=== PATIENT | female | born 2000 | race Caucasian/White ===

== ENCOUNTER → 2025-02-26 15:00 | Outpatient (BNV) | payer OTHER, SELFPAY | PROVIDERS: Visit Provider Radiology Diagnostic Radiology | DX: R10.2 Pelvic and perineal pain (principal) | CPT/HCPCS: 76830; 76856 ==

== ENCOUNTER 2025-02-26 15:15 | Outpatient (REF) | payer OTHER, SELFPAY ==
--- NOTE | ~2025-02-26 | US_ITS ---
EXAMINATION: US PELVIS TRANSABDOMINAL AND TRANSVAGINAL HISTORY: PELVIC PAIN, LOW LYING STRINGS, CHECK IUD COMPARISON: There are no prior studies for comparison. TECHNIQUE: Transabdominal and endovaginal real-time 2D jackson-scale ultrasound was performed. FINDINGS: Uterus: The uterus is normal in size, measuring 8.3 x 3.4 x 4.4 cm. Myometrium has a normal echotexture. No fibroids are identified. Endometrium: The endometrial stripe measures 5 mm in thickness. An IUD is noted which is low-lying. The tip is approximately 3.8 cm from the uterine fundus. Right ovary: The right ovary measures 5.8 x 2.0 x 2.0 cm. The right ovary is normal in size and echotexture. Left ovary: The left ovary measures 3.0 x 1.9 x 1.5 cm. The left ovary is normal in size and echotexture. Pelvic fluid: none. US/US pelvic and transvaginal IMPRESSION: Low-lying IUD with the tip approximately 3.8 cm from the uterine fundus. Otherwise unremarkable pelvic ultrasound. Electronically signed by: Joss Farnsworth MD 02/26/2025 03:51 PM EDT
--- OUTSIDE RECORDS SUMMARY | 2025-02-26 15:49 | XMS_ITS | Patient Health Record ---
Author Organization [facility] Address [address] [facility] [address] [place] [address] Care Team Providers Care Art History Professor Name Role Phone aaaNone, None Primary Care Provider Unavailabl e Reason For Referral No Information Plan Of Treatment No Information Insurance Providers Payer Name Payer Address Payer Phone Subscriber Number Group Number Insured Name Patient Relationship to Insured Coverage Start Date Coverage End Date MD Garcia [address] [place] [address] [phone] [id number] Shyanne Corea Self - patient is the insured 2020
--- OUTSIDE RECORDS SUMMARY | 2025-02-26 15:49 | XMS_ITS | Referral Summary ---
Author Organization [facility] Address [address] [place] [address] Care Team Providers Care Sexual Abuse Counsellor Name Role Phone Vandana Schwartz DANG Primary Care Provider [phone] Encounters Date Type Department Care Team Description 12/23/2024 Telephone [facility] 1st Floor [address] [place] [address] Jenny Cm MD from Last 3 Months Medications amLODIPine (NORVASC) 5 mg tablet Take 2.5 mg by mouth once a day. 4 Active hydrOXYzine HCL (ATARAX) 25 mg tablet Take 25 mg by mouth 3 times a day as needed. 5 Active propranoloL (INDERAL) 10 mg tablet Take 10 mg by mouth 2 times a day. 4 Active doxycycline monohydrate (MONODOX) 100 mg capsule Take 100 mg by mouth once a day. 5 Active triamcinolone acetonide (KENALOG) 0.1% cream Apply 0.1 application. topically to the affected area 2 times a day. 4 Active ruxolitinib (OPZELURA) 1.5 % topical creamIndications :Dermatitis Apply a thin layer twice daily to affected areas of up to 20% body surface area. Do not exceed more than 60 g/week or 100 g every two weeks. 60 g 3 5 Active Social History Tobacco Use Types Packs/Day Years Used Date Smoking Tobacco: Never Assessed Comments Unknown Sex and Gender Information Value Date Recorded Sex Assigned at Female 11/18/2024 3:14 PM EST Legal Sex Female 3:06 PM EST Gender Identity Female 11/18/2024 3:14 PM EST Sexual Orientation Not on file Plan of Treatment Upcoming Encounters Date Type Department Care Team (Late st Contact Info) Description 03/02/2025 3:30 PM EDT Clinical Support [facility] 1st Floor [address] [place] [address] Héctor Delcid MD [address] [place] [address] Jenny Cm MD [address] [place] [address] 03/04/2025 10:30 AM EDT Clinical Support [facility] 4th Floor [address] [facility], [place] [id number] Plant And Equipment Worker: Moira Rodriguez 03/06/2025 10:30 AM EDT Clinical Support [facility] 1st Floor [address] [place] [address] Jenny Cm MD [address] [place] [address] [address] [place] [id number] [employer] PPO/EPO/IND Care Teams Sexual Abuse Counsellor Relationship Specialty Start Date End Date Vandana Schwartz FNP [address] [place] [id number] PCP - General 11/18/24
--- OUTSIDE RECORDS SUMMARY | 2025-02-26 15:49 | XMS_ITS | Patient Health Record ---
Author Organization [facility] Address [address] [facility] [address] [place] [address] Support Name Relationship Address Phone MARIE TERAN Guarantor Unknown Allergies No Known Allergies Reason For Referral No Information Medications Medication SIG (Take, Route, Frequency, Duration) Notes Start Date End Date Status Cefdinir 300 MG Oral for 0 ; SourceRx: Cefdinir 300 MG Oral Capsule; SourceStatus:Active *Pick strength-form from Tip or Skip for eRX* 05/03/2017 Active 11/03 1-20 MG-MCG Oral for 0 ; SourceRx: 11/03 1-20 MG-MCG Oral Tablet; SourceStatus:Active *Pick strength-form from [place] for eRX* 05/03/2017 Active amLODIPine Besylate 10 MG Oral for 0 ; SourceRx: AMLODIPINE BESYLATE, 10MG (Oral Tablet); SourceStatus:Active *Pick strength-form from Tip or Skip for eRX* 05/03/2017 Active Problems Problem Type SNOMED Code ICD Code Onset Dates Problem Status W/U Status Risk Notes Problem Chronic rhinitis (56127316) Chronic rhinitis (J31.0) Active confirmed Problem Hypertrophy of tonsils (88583483) Hypertrophy of tonsils (J35.1) Active confirmed Problem Apnea (4061927) Apnea, not elsewhere classified (R06.81) Active confirmed Problem Title:Apne a Problem Puncture wound without foreign body of left ear, sequela (S01.332S) Active confirmed Plan Of Treatment No Information Insurance Providers Payer Name Payer Address Payer Phone Subscriber Number Group Number Insured Name Patient Relationship to Insured Coverage Start Date Coverage End Date [employer] [address] [place] [address] [id number] MARIE TERAN 5 Medical (General) History Surgical History Surgery Date(Month/Year) Problem Title : None, Problem Status : A ctive,
--- OUTSIDE RECORDS SUMMARY | 2025-02-26 15:49 | XMS_ITS | Clinical Summary ---
Author Organization [facility] Address [address] [place] [address] Care Team Providers Care Advertising Dispatch Clerks Supervisor Name Role Phone Vandana Schwartz PRINCIPAL ARCHAEOLOGIST Primary Care Provider [phone]- [phone] Medications amLODIPine (NORVASC) 5 mg tablet Take [...] two weeks. 60 g 3 5 Active Encounters Date Type Department Care Team Description 12/23/2024 Telephone [facility] 1st Floor [address] [place] [address] Jenny Cm MD from Last 3 Months Social History Tobacco Use Types Packs/Day Years [...] Description 03/02/2025 3:30 PM EDT Clinical Support [facility] 1st Floor [address] [place] [address] Héctor Delcid MD [address] [place] [address] Jenny Cm MD [address] [place] [address] 03/04/2025 10:30 AM EDT Clinical Support [facility] 4th Floor [address] [facility], [place] [address] Computer Systems Software Engineer: Moira Rodriguez 03/06/2025 10:30 AM EDT Clinical Support [facility] 1st Floor [address] [place] [address] Jenny Cm MD [address] [place] [address] Health Maintenance Due Date Last Done Comments HIV Screening 1998 Hepatitis C Screening 1998 Pap Smear 1998 Varicella Vaccines (1 of 2 - 13+ 2-dose series) 2011 HPV Vaccines (1 - 3-dose series) 2013 Hepatitis B Vaccines (1 of 3 - 19+ 3-dose series) 2017 DTaP,Tdap,and Td Vaccines (1 - Tdap) 2020 COVID-19 Vaccine (4 2023-2 5 season) 2024 03/15/2021, 03/15/2021, 02/22/2021 Alcohol/Substance Use Screening 10/15/2024 Depression Screening and Follow-Up 10/15/2024 Social Drivers of Health Annual Screening 10/15/2024 Influenza Vaccine (Season Ended) 2025 RSV Vaccine (60+ years old and patients) (1 - 1-dose 75+ series) 2073 Pneumococcal Vaccine: Pediatric (0-5 Years) and At-Risk Patients (6-50 Years) Aged Out No longer eligible based on patient's age to complete this topic Insurance [employer] PPO/EPO/IND Care Teams Advertising Dispatch Clerks Supervisor Relationship Specialty Start Date End Date Vandana Schwartz FNP [address] [place] [id number] PCP - General 11/18/24
--- OUTSIDE RECORDS SUMMARY | 2025-02-26 15:49 | XMS_ITS | Data Portability ---
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 These include GERD, palpitations, weight gain, emotional labilitycatara ct, glaucoma, tendon rupture, steroid psychosis, and avascular necrosis. Risks and benefits of systemic steroids took place and patient desired to proceed to use and accepts the risks discussed. Not available 04/08/2018 14:11:01 10/22/2019 10/22/2019 might need malaria ppx for 4 weeks of travel. 6 weeks given to be taken before and after as prescribed. Advised patient which areas would need malaria ppx and sent with cdc guidelines cassie Not available 10/22/2019 09:17:49 01/16/2020 01/16/2020 REviewed the possiblity of mono. Recommended symptomatic care, but follow up with symptoms that are not improving after 10 days. sstivison Not available 01/16/2020 09:46:31 Plan of Treatment Reminders Order Date Submit Date Provider Last Modified By Organization Details Last Modified Time Details Appointments None recorded. Lab CT + NG RNA, PCR, unspecifie d specimen 2018 019 [place] [facility] ([facility], [facility], [place], [address], 9 07:36:58 RPR (rapid plasma reagin), serum 2018 019 [place] [facility] ([place]), [address], [place], [address], 9 07:37:03 HIV 1+2 AB + HIV 1 p24 Ag, qualitativ e immunoassa y, serum 2018 019 [place] [facility] ([place]), [address] [place], [address], 9 07:37:00 Referral None recorded. Procedures None recorded. Surgeries None recorded. Imaging MRI, cervical spine, w/o contrast 2020 021 chun 121 Not available 1 11:38:09 XR, cervical spine, 4 or 5 view 2020 021 chun 121 Not available 1 11:38:09 Medication Orders atovaquone 250 mg-proguan il 100 mg tablet 2019 020 [id number], [address] [place], [address], 0 08:51:23 Epiduo Forte 0.3 %-2.5 % topical gel with pump 2019 020 INTERFACE [id number], [address] [place], [address], 0 08:48:48 spironolac tone 50 mg tablet 2019 020 INTERFACE [id number], [address] [place], [address], 0 08:48:48 Medrol (Hussein) 4 mg tablets in a dose pack 2017 018 INTERFACE Not available 8 14:11:19 Patient TargetsNo targets recorded. Patient Instructions Encounter Date Encounter Id Patient Instructions Last Modified By Organization Details Last Modified Time 04/08/2018 [id number] nasal septum repair: before your surgery Not available 04/08/2018 14:11:17 sleep apnea: car e instructions Not available 04/08/2018 14:11:17 tonsillitis: car e instructions Not available 04/08/2018 14:11:17 03/14/2019 [id number] visual acuity* JANINA Not available 03/14/2019 11:28:04 Your child looks great. Please return in one year for next well visit. No vaccines were needed at this visit. Make sure to use helmets for activities, always wear seat belt/sit in right seat for your age. [place] your teeth 2 times a day and see the dentist every 6 months. Watch less than 2 hours of TV a day and try to stay healthy by eating a good variety of foods and getting exercise daily. Do not smoke, drink, or do drugs. larling Not available 03/14/2019 13:20:49 10/22/2019 [id number] >50% of time spent on discussion, education and counseling. Total time spent greater than 30 min larling Not available 10/22/2019 09:16:33 01/16/2020 [id number] Continue using ibuprofen for discomfort and rotate in Tylenol as well. Drink lots of fluids. Follow up for symptoms that don't improve after 10 days, or any difficulty breathing. sstivison Not available 01/16/2020 09:47:11 Reason for Referral None Reported. Results Created Date Observation Date Name Description Value Unit Range Abnormal Flag Note LastModifiedBy Organization Detail LastModifiedTime 03/14/2003/16/2019 CT + NG RNA, PCR, unspe cifie d speci men chlamydia trachomatis, TIFFANY Negati ve negati ve Not Available [facility] ([facility]) [address] [place], [address], 03/16/2019 07:36:58 03/14/2003/16/2019 CT + NG RNA, PCR, unspe cifie d speci men neisseria gonorrhoeae, TIFFANY Negati ve negati ve Not Available [facility] ([facility]) [address] [place], [address], 03/16/2019 07:36:58 03/14/2003/15/2019 HIV 1+2 AB + HIV 1 p24 Ag, quali tativ e immun oassa y, serum HIV screen 4TH generation wrfx Non Reacti ve non reacti ve Not Available [facility] ([facility]) [address], [place], [address], 03/16/2019 07:37:00 03/14/20 19 03/15/2019 RPR (rapi d plasm a reagi n), serum RPR Non Reacti ve non reacti ve Not Available [facility] ([facility]) [address], [place], [address], 03/16/2019 07:37:03 03/14/20 19 03/14/2019 visua l acuit y* R Eye Uncorrected 20/20 Not Available In-O ffice Order Internal Use Only DO Not Attach Compendium DO Not Attach Compendium, Do Not Delete/merge, [id number] 03/14/2019 11:06:07 03/14/20 19 03/14/2019 visua l acuit y* L Eye Uncorrected 20/20 Not Available In-O ffice Order Internal Use Only DO Not Attach Compendium DO Not Attach Compendium, Do Not Delete/merge, [id number] 03/14/2019 11:06:07 03/14/20 19 03/14/2019 visua l acuit y* Bilateral Eyes Uncorrected 20/20 Not Available In-O ffice Order Internal Use Only DO Not Attach Compendium DO Not Attach Compendium, Do Not Delete/merge, [id number] 03/14/2019 11:06:07 03/11/20 21 03/10/2021 XR, cervi jasper spine No observ ation record ed. [email or web address] Not Available 03/11 10:11:18 03/11/20 21 03/10/2021 MRI, cervi jasper spine , w/o contr ast No observ ation record ed. [email or web address] Not Available 03/11 10:22:19 03/11/20 21 03/10/2021 MRI, thora cic spine , w/o contr ast No observ ation record ed. [email or web address] Not Available 03/11 10:22:19 Result Notes None recorded. Problems Name Problem SNOMED Code Status Onset Date Resolution Date Notes Provider Name and Address Organization Details Recorded Time Hypertensive disorder 04908146 Active Giuliana Reed [facility] 8 13:31:50 Problem Notes Documentation Provider Name and Address Organization Details Recorded Time Ent [facility] Note : [facility] ? [address], [place] [address]DRIVXBVZ, MARK Radha (id #[id number], : 2000) [facility] [address] [place] [address] , Date: 04/08/2018RE: Mark Corea, : 2000, PT ID #[id number] Martinez MD, I would like to thank you for referring Mark Nahomy to our practice for consultation and evaluation of Pt present for tonsil abscess. PT notes started about 4 days ago had a sore throat , just recently about 2 days ago it was worse. [facility] her to [facility], where she was diagnosed with peritonsiallar abscess. PT was given antibiotics by IV and also steriod and was given antibiotics to take home. PT notes she feel a lot better today then she did the other day. PT notes she has trouble swallowing the yeterday. , on 04/08/2018. I have enclosed a copy of the office evaluation for your records. Once again, thank you for allowing me to participate in the care of this patient. Sincerely, Electronically Signed by: JOSE DAVID RDZ MD Assessment/PlanRisk of systemic steroids discussed. These include GERD, palpitations, weight gain, emotional labilitycataract, glaucoma, tendon rupture, steroid psychosis, and avascular necrosis. Risks and benefits of systemic steroids took place and patient desired to proceed to use and accepts the risks discussed. 1. Acute ohzazboblqzX09.90: Acute tonsillitis, unspecified TONSILLITIS: CARE INSTRUCTIONS 2. Hypertrophy of tonsils- pt to return early may to consider tonsillecotmy for uprymqxrzyeR80.1: Hypertrophy of tonsils Medrol (Hussein) 4 mg tablets in a dose pack - Take 1 dose pk(s) by oral route. ? Qty: 1 dose pk(s) ? Refills: 0 ? Pharmacy: [id number] 3. Obstructive sleep apnea pkhayhdrA37.33: Obstructive sleep apnea (adult) (pediatric) SLEEP APNEA: CARE INSTRUCTIONS 4. Deviated nasal khkkjtG62.2: Deviated nasal septum NASAL SEPTUM REPAIR: BEFORE YOUR SURGERY Return to Office None recordedHistory of Present Illness: 17 yo White female with suspected right sided [employer]. Sore throat started last week, Sunday evening worsened, difficulty swallowing yesterday. Low grade fever 100F yesterday. Pt seen at [facility] sunday negative rapid strep. seen at [facility]. no ct Scan bloodwork wbc 14, monospot negative. given iv steroid decadron and antibiotics. given clindamycin oral for home. pt is significantly resolved. had hot potato voice yesterday. no pain today. able to swallow. no breathing issues. 2 weeks ago had with severe sore throat. no frequent tonsil infections. no mono in past. idiopathic htn. Allergies: Reviewed Allergies NKDA Medications: Reviewed Medications NameDate Source amLODIPine 10 mg tdoemc66 mg.04/08/18?entered Giuliana Reed Ozapfeceqtq75/25/18?entered Giuliana Reed Lo Loestrin Fe 1 mg-10 mcg (24)/10 mcg (2) joxmmn35/09/17?filled [facility] Medrol (Hussein) 4 mg tablets in a dose packTake 1 dose pk(s) by oral route.04/08/18?prescribed Jose David Rdz MD Vital Signs: BP: 125/80 sitting L arm (87th % / 90th %)04/08/2018 01:36 pm BMI: 23.6 (70th %)04/08/2018 01:36 pm Ht: 5 ft 7.5 in (171.45 cm; 90th %)04/08/2018 01:32 pm Wt: 153 lbs (69.4 kg; 83rd %)04/08/2018 01:36 pm T: 97.7 F? ? ? (36.5 C)04/08/2018 01:41 pm Pulse: 69 bpm muitmkl5104/08/2018 01:36 pm O2Sat: 98% Room Air at Rest04/08/2018 01:36 pm Physical ExamPatient is a 17-year-old female. Detailed ENT Exam Constitutional:Normal body habitus, Normal physical developmentCommunicates easily and no hoarseness Head/Face:No scars, lesions or massesFace symmetric at rest and motion Eyes: EOMI bilaterally. NO diploplia. No nystagmus present Ears:Right external ear without any lesions, scars or massesRight ear canal clear without any edema, erythema or drainageRight Tympanic membrane clear intact and no middle ear effusion Left external ear without any lesion, scars, or massesLeft ear canal clear without any edema, erythema, or drainageLeft Tympanic membrane clear intact and no middle ear effusion Hearing equal to finger rub and Tuning forkWeber midline and Rinne AC > BC bilaterally Nose:No external lesions, scars, masses, or asymmetryNasal mucosa moist without drainage, polyps, or massesSeptum midline without lesionsTurbinate normal size without edema or erythema.Frontal and maxillary sinus nontender to palpation bilaterally. OC/OP:Lips, teeth, and gingiva unremarkableNormal occlusion.Oral cavity mucosa moist without lesionsTongue midline mobile without deviationTonsils 3-4 + Small amount of Exudate seen on right tonsil. palpation rubbery.no trismus. no peritonsillar bulge.Posterior pharyngeal wall without post nasal drainage or cobblestoning NeckGrossly symmetric ,Trachea midlineThyroid normal size, nontender, no palpable massesNo palpable Cervical Lymph nodes Procedure DocumentationNone recordedResults DocumentationN/A Ivonne Martinez MD [address], [place], [address], [facility] - [facility] 04/09/2018 21:07:06 Neurosurgery Consult Note : [facility] - [facility] ? [address], [place] [address]CAWLOEBOMARK COREA (id #[id number], : 2000) [facility] [address] [place] [address] , Omux: 03/09/2021E: Mark Corea, : 2000, PT ID #[id number] Martinez MD (Virtual Visits Available), I would like to thank you for referring Mark Corea to our practice for consultation and evaluation ofNone recorded, on 02/25/2021. I have enclosed a copy of the office evaluation for your records. Once again, thank you for allowing me to participate in the care of this patient. Sincerely, Electronically Signed by: TERI VELASQUEZ MD Assessment/Plan1. Cervical radiculopathy- With a diagnosis of cervical radiculopathy and with physical therapy there is been no resolution I have recommended she get an MRI of the cervical spine as well as flexion-extension films. I am concerned that she has had an injury.With the failure of physical therapy and nonsteroidal anti-inflammatory medication imaging will be needed to make any further recommendations.M54.12: Radiculopathy, cervical region MRI, CERVICAL SPINE, W/O CONTRAST XR, CERVICAL SPINE, 4 OR 5 VIEW Views (X-RAY, CERVICAL SPINE): Flexion & Extension Return to Office None recordedHistory of Present Illness: Ms. Corea is here for a virtual visit. She is a very active young woman and at college over the past few months she has been dancing very vigorously. She is noticed increasing amount of pain in her neck and recently she had an event where she felt a crushing sensation in the back of her neck while dancing and carrying a large piece of wood on the top of her head. Since then she is been complaining of neck pain that radiates to her arms. She has been to the emergency room as well as to a local physician's judicial assistant and they have diagnosed her with cervical radiculopathy. She has started physical therapy and has had no significant improvement in her symptoms. She made an appointment to see me virtually from her residence in [place]. She denies any bladder or bowel control issues but she does admit to significant arm pain that she describes as a burning sensation that wraps around her chest at times also extends into her arms. She denies any weakness but she has difficulty sleeping at night. She has been using ibuprofen without significant improvement. She has been given cervical traction and a home traction device. None of this has alleviated the pain and she thinks has exacerbated it. Allergies: Reviewed Allergies NKDA Medications: Reviewed Medications NameDate Source amLODIPine 10 mg iljmzr20 mg.04/08/18?entered Giuliana Reed atovaquone 250 mg-proguaniL 100 mg tablettake 1 tablet daily starting 2 days before entering mosquito areas until 7 days after10/22/19?prescribed Mallorie Retana MD clindamycin HCL 150 mg hwsunwl72/24/18?filled [facility] Epiduo Forte 0.3 %-2.5 % topical gel with pumpAPPLY A THIN LAYER TO THE AFFECTED AREA(S) OF THE FACE AND/OR UPPER TRUNK AFTER WASHING BY TOPICAL ROUTE ONCE DAILY12/29/19?filled [facility] Flucelvax Quad [id number] (PF) 60 mcg (15 mcg x 4)/0.5 mL IM syringeTO BE ADMINISTERED BY PHARMACIST FOR DXNFHPWJGEOT96/29/19?filled surescripts Junel FE 11/03 (28) 1 mg-20 mcg (21)/75 mg (7) /11/18?filled [facility] Lidocaine Viscous 2 % mucosal cljshvua80/24/18?filled [facility] Lo Loestrin Fe 1 mg-10 mcg (24)/10 mcg (2) isjrct64/09/17?filled [facility] methylPREDNISolone 4 mg tablets in a dose packTake 1 dose pk(s) by oral route.04/08/18?filled [facility] predniSONE 10 mg tabletTAKE 6 TABLETS BY MOUTH EVERY DAY FOR 3 DAYS , 4 TABS X4 DAYS THEN 2 TABS X4 DAY07/17/19?filled surescripts spironolactone 50 mg tabletTAKE 1 TABLET BY MOUTH EVERY DAY01/03/20?filled [facility] Vital Signs:None recordedPhysical ExamPatient is a 20-year-old female. This was a virtual synchronous visit. Ms. Corea is awake, alert and oriented. She is well-developed, well-nourished and in no acute distress. She seems nondiaphoretic with no shortness of breath. She is able to stand on her own without difficulty. She has full strength in bilateral upper extremities as best as I can determine using a virtual exam. She has limited range of motion of her cervical spine. She does have a positive Spurling sign to the left. She has otherwise normal range of motion of the lumbar and thoracic spine. She has known scoliosis of the thoracic area.Procedure DocumentationNone recordedResults DocumentationN/A Ivonne Martinez MD [address], [place], [address], [facility] [employer] [facility] 03/09/2021 11:32:04 Procedures Surgical History None recorded. Imaging Results Imaging Date Name Status LastModified by Organiz ation Details LastModified Time 03/10/2021 XR, cervical spine completed [email or web address] Information not available 03/11/2021 10:11:18 03/10/2021 MRI, cervical spine, w/o contrast completed [email or web address] Information not available 03/11/2021 10:22:19 03/10/2021 MRI, thoracic spine, w/o contrast completed [email or web address] Information not available 03/11/2021 10:22:19 Procedure Notes None recorded. Medical Equipment None Reported. Allergies No known drug allergies Medications Name Sig Start Date Stop Date Status Note LastModified by Organization Details LastModified Time prednisone 10 mg tablet TAKE 6 TABLETS BY MOUTH EVERY DAY FOR 3 DAYS , 4 TABS X4 DAYS THEN 2 TABS X4 DAY active Not Available Not Available No t Available Lidocaine Viscous 2 % mucosal solution active Not Available Not Available Not Available hydrocodone 5 mg-acetamin ophen 325 mg tablet 03/14 completed Not Available Not Available Not Available atovaquone 250 mg-proguani l 100 mg tablet take 1 tablet daily starting 2 days before entering mosquito areas until 7 days after 2019 active Not Available Not Available Not Avai lable clindamycin HCl 150 mg capsule active Not Available Not Available Not Available oxycodone-a cetaminophe n 5 mg-325 mg tablet 03/14 completed Not Available Not Available Not Available amlodipine 10 mg tablet 10 mg by oral route. active Not Available Not Available No t Available gabapentin 300 mg capsule TAKE 1 CAPSULE BY MOUTH TWICE A DAY FOR 7 DAYS THEN TAKE 1 CAPSULE 3 TIMES DAILY 2020 active Not Available Not Available Not Avai lable methylpredn isolone 4 mg tablets in a dose pack Take 1 dose pk by oral route. active Not Available Not Available No t Available cefdinir 300 mg capsule 03/14 completed Not Available Not Available Not Available spironolact one 50 mg tablet TAKE 1 TABLET BY MOUTH EVERY DAY active Not Available Not Available No t Available Junel FE 11/03 (28) 1 mg-20 mcg (21)/75 mg (7) tablet active Not Available Not Available N ot Available Clindamycin 03/14 completed Not Available Not Available Not Available Lo Loestrin Fe 1 mg-10 mcg (24)/10 mcg (2) tablet active Not Available Not Available Not Available Epiduo Forte 0.3 %-2.5 % topical gel with pump APPLY A THIN LAYER TO THE AFFECTED AREA(S) OF THE FACE AND/OR UPPER TRUNK AFTER WASHING BY TOPICAL ROUTE ONCE DAILY active Not Available Not Available No t Available Kyleena 17.5 mcg/24 hr (up to 5 years) 19.5 mg intrauterin e device 04/08 completed Not Available Not Available Not Available Flucelvax Quad 4348-2329 (PF) 60 mcg (15 mcg x 4)/0.5 mL IM syringe TO BE ADMINISTE RED BY PHARMACIS T FOR IMMUNIZAT ION active Not Available Not Available No t Available Vitals Date Recorded Body height Provider Name an d Address Organization Details Last Updated DateTime 04/08/2018 171.45 cm Anabella Bloom [facility] 04/08/2018 13:32:35 Date Recorded Body mass index (BMI) Body weight Body temperature Heart rate Oxygen saturation Oxygen saturation in Arterial blood by Pulse oximetry Systolic blood pressure Diastolic blood pressure Provider Name and Address Organization Details Last Updated DateTime 8 23.6 kg/m2 26091.6 3 g 97.7 [degF] 69 /min 98 % 98 % 125 mm[Hg] 80 mm[Hg] Giuliana Derek [facility] 8 13:36:30 Date Recorded Body height Heart rate Respiratory rate Body mass index (BMI) Percentile per age and sex Body mass index (BMI) Body weight Systolic blood pressure Diastolic blood pressure Provider Name and Address Organization Details Last Updated DateTime 9 173.99 cm 80 /min 20 /min 69 % 23.7 kg/m2 62562.5 9 g 126 mm[Hg] 86 mm[Hg] Wendy Bhtat [facility] 9 10:39:25 Date Recorded Body height Body temperature Body mass index (BMI) Body mass index (BMI) Percentile per age and sex Body weight Provider Name and Address Organization Details Last Updated DateTime 10/22/2019 173.99 cm 97.8 [degF] 23.5 kg/m2 67 % 21311.5 7 g Adolfo Albright [facility] 0 08:24:20 Social History Question Answer Notes LastModified by Organizat ion Details LastModified Time Tobacco Smoking Status Never Smoker Giuliana Reed [facility] 04/08/2018 13:36:09 What Is Your Home Situation? Both Parents Information not available 02/09/2017 How Often Do You Have A DRINK Containing ALCOHOL? Monthly Or Less Information not available 04/08/2018 What Was The Date Of Your Most Recent Tobacco Screening? 04/08/2018 Information not available 05/09/2019 Do You Have Any Siblings? Sister Information not available 02/09/2017 Are You Passively Exposed To Smoke? No Information not available 02/09/2017 Sex: Unknown Functional Status None recorded. Mental Status None recorded. Family History Relationship Description Onset Age of this Age Resolved Age Notes LastModified by Organization Details LastModified Time Father No current problems or disability [email or web address] Not available 04/08 13:32:45 Mother No current problems or disability [email or web address] Not available 04/08 13:32:45 Medical History No medical history recorded. Gynecological History Statement/Question Response How heavy is the bleeding? very heavy (9 pads/day) Date of LMP 12/08/2014 How many days between your menstrual cyc le 28-35 days Sexually Active? Y Normal Menses Y Menses Monthly Y Duration of Flow (days) 5 Age at Menarche 11 LMP Approximate Obstetrics History GPAL:G 0 P 0 0 0 0 Immunizations Vaccine Type Date Status Note Provider Nam e and Address Organization Details Recorded Time meningococcal B, recombinant 6 completed Not Available [facility] 11/02/2019 06:21:50 Tdap 0 completed Not Available [facility] 11/02/2019 03:04:34 meningococcal B, recombinant 6 completed Not Available [facility] 11/08/2019 04:39:52 meningococcal B, recombinant 6 completed Not Available [facility] 11/01/2019 02:50:13 pneumococcal conjugate PCV 7 0 completed Giuliana Miles null, [facility] 04/08/2018 13:32:05 MMR 3 completed Giuliana Miles null, [facility] 04/08/2018 13:32:06 DTaP 9 completed Giuliana Miles null, [facility] 04/08/2018 13:32:06 meningococcal MCV4P 0 completed Giuliana Miles null, [facility] 04/08/2018 13:32:06 IPV 9 completed Giuliana Miles null, [facility] 04/08/2018 13:32:05 Hep B, adolescent or pediatric 9 completed Giuliana Miles null, [facility] 04/08/2018 13:32:05 varicella 0 completed Giuliana Miles null, [facility] 04/08/2018 13:32:05 Hep B, adolescent or pediatric 9 completed Giuliana Miles null, [facility] 04/08/2018 13:32:06 IPV 0 completed Giuliana Miles null, [facility] 04/08/2018 13:32:05 Hep B, adolescent or pediatric 9 completed Giuliana Miles null, [facility] 04/08/2018 13:32:06 meningococcal MCV4P 4 completed Giuliana Miles null, [facility] 04/08/2018 13:32:06 varicella 8 completed Giuliana Miles null, [facility] 04/08/2018 13:32:06 IPV 9 completed Giuliana Miles null, [facility] 04/08/2018 13:32:05 Hib, unspecified formulation 9 completed Giuliana Miles null, [facility] 04/08/2018 13:32:05 HPV, quadrivalent 2 completed Giuliana Miles null, [facility] 04/08/2018 13:32:06 TST-PPD intradermal 4 completed Giuliana Miles null, [facility] 04/08/2018 13:32:06 DTaP 9 completed Giuliana Miles null, [facility] 04/08/2018 13:32:05 HPV, quadrivalent 1 completed Giuliana Miles null, [facility] 04/08/2018 13:32:05 HPV, quadrivalent 1 completed Giuliana Miles null, [facility] 04/08/2018 13:32:06 Hep A, ped/adol, 2 dose 7 completed Giuliana Miles null, [facility] 04/08/2018 13:32:06 DTaP 3 completed Giuliana Miles null, [facility] 04/08/2018 13:32:06 Hib, unspecified formulation 9 completed Giuliana Miles null, [facility] 04/08/2018 13:32:05 Hib, unspecified formulation 9 completed Giuliana Miles null, [facility] 04/08/2018 13:32:06 Hib, unspecified formulation 0 completed Giuliana Miles null, [facility] 04/08/2018 13:32:05 MMR 0 completed Giuliana Miles null, [facility] 04/08/2018 13:32:05 DTaP 0 completed Giuliana Miles null, [facility] 04/08/2018 13:32:05 Hep A, ped/adol, 2 dose 8 completed Giuliana Miles null, [facility] 04/08/2018 13:32:06 Tdap 0 completed Giuliana Miles null, [facility] 04/08/2018 13:32:06 IPV 3 completed Giuliana Miles null, [facility] 04/08/2018 13:32:06 pneumococcal conjugate PCV 7 0 [facility] 13:32:06 DTaP 9 [facility]2018 13:32:06 Past Encounters Encounter ID Performer Location Encounter Start Date Encounter Closed Date Diagnosis/Indication Diagnosis SNOMED-CT Code Diagnosis ICD10 Code Diagnosis Note [id number] Ivonne Martinez MD PMG_CMG_C katalina Saba Office* [address] [facility] [address] [place] [id number] 12/22/2014 14:38:43 12/23/2014 08:29:28 Transient hypertension 51374298 Uses contraception [id number] Razia Cast MD PMG_CMG_C katalina Saba Office* [address] [facility] [address] [place] [id number] 02/01/2015 13:56:51 02/01/2015 15:34:09 Hypertensive disorder 29610649 Well child 536240022 [id number] Ivonne Martinez MD PMG_CMG_C katalina Saba Office* [address] [facility] [address] [place] [id number] 12/09/2015 14:29:27 12/10/2015 16:35:05 Well child 142084654 Z00.129 Hypertensive disorder 38 161467 I10 [id number] Farhan stokes MD PMG_CMG_C katalina Mesfin Office* [address] [facility] [address] [place] [address] 02/24/2016 15:11:36 02/24/2016 15:31:00 Well child 197335131 Z00.129 [id number] Farhan stokes MD PMG_CMG_C hevy Mesfin Office* [address] [facility] [address] [place] [address] 06/27/2016 15:18:05 06/27/2016 15:34:16 Active or passive immunization 308425966 Z23 [id number] Ivonne Martinez MD PMG_CMG_C katalina Saba Office* [address] [facility] [address] [place] [id number] 02/09/2017 13:58:15 02/10/2017 12:10:28 Well child 972535455 Z00.129 Hypertensive disorder 38 960503 I10 [id number] Farhan stokes MD PMG_CMG_C katalina Saba Office* [address] [facility] [address] [place] [id number] 03/29/2017 14:41:47 03/29/2017 14:50:54 Tuberculosis screening 419848571 Z11.1 [id number] Farhan stokes MD PMG_CMG_C katalina Saba Office* [address] [facility] [address] [place] [address] 05/03/2017 07:17:10 05/04/2017 08:42:35 Complication of ear piercing 546829033 H95.89 [id number] Jose David Rdz MD PMG_HBD_S [facility] Office* [address] [facility] [place] [id number] 04/08/2018 13:17:07 04/08/2018 14:14:26 Acute tonsillitis 02965756 J03.90 Hypertroph y of tonsils 38846916 J35.1 pt to return early may to consider tonsilleco tmy for enlargmeen t Obstructiv e sleep apnea syndrome 60188815 G47.33 Deviated nasal septum 12 4006315 J34.2 [id number] Mallorie Retana MD PMG_CMG_C katalina Saba Office* [address] [facility] [address] [place] [address] 03/14/2019 10:31:34 03/16/2019 15:05:22 Hypertensive disorder 24900189 I10 history of. Has not taken medication x 1 year. High normal today. Discussed importance of monitoring it at home and followup with cardio or second opinion. Patient feels it is related to her mental health and no one will listen . Normal weight 10238661 Z 68.52 Exercises education, guidance, and counseling 777415775 Z71.82 Diet education 01839616 Z71.3 concern for eating do/body dismorphia . Advise psychology followup for mood and eating. Scoliosis deformity of spine 852189656 M41.9 Venereal d isease screening 090895671 Z11.3 Adult heal th examination 369965405 Z00.01 Mood disorder 61948439 F 39 PHQ9=12. No SI/HI. Patient working on mental health, but not seeking profession al help. Suggest seeking psych. [id number] Mallorie Retana MD PMG_CMG_C katalina Saba Office* [address] [facility] [address] [place] [address] 10/22/2019 08:21:16 10/22/2019 15:54:28 Foreign travel education 628345373 Z41.8 Travel destinatio n discussed. Cdc.gov website shown to patient/se nt with her a printout. Recommende d vaccines discussed and administer ed as below. Education on proper water exposures, mosquito repellants , and other safety practices Acne 18269802 L70.9 [id number] CASI Ponce G_CMG_C katalina Saba Office* [address] [facility] [address] [place] [address] 01/16/2020 09:27:05 01/17/2020 01:13:08 Acute pharyngitis 929529024 J02.9 [id number] Teri Velasquez MD PMG_WBSI_ [place] Office* [address] [facility] [place] [id number] 02/28/2021 08:46:14 02/28/2021 15:47:08 Cervical radiculopathy 36056072 M54.12 With a diagnosis of cervical radiculopa thy and with physical therapy there is been no resolution I have recommende d she get an MRI of the cervical spine as well as flexion-ex tension films. I am concerned that she has had an injury.Wit h the failure of physical therapy and nonsteroid al anti-infla mmatory medication imaging will be needed to make any further recommenda tions. Health Concerns Section Related Observation LastModified by Organization Detai ls LastModified Time None Recorded Concern Status LastModified by Organization Details LastModified Time None Recorded Advance Directives Directive None Recorded Payers Insurance Date Sequence Insurance Name Policy Number Policy Suarez Covered Member ID Suarez Member ID Guarantor Name 05/05/2024 1 [employer] - CHOICE (POS II) [id number] Odin Nicole [id number] Mark Corea Notes Date Note Type Note Provider Name and Address Organization Details Recorded Time 04/08/2018 text/html 17 yo White fema le with suspected right sided [employer]. Sore throat started last week, Sunday evening worsened, difficulty swallowing yesterday. Low grade fever 100F yesterday. Pt seen at [facility] sunday negative rapid strep. seen at [facility]. no ct Scan bloodwork wbc 14, monospot negative. given iv steroid decadron and antibiotics. given clindamycin oral for home. pt is significantly resolved. had hot potato voice yesterday. no pain today. able to swallow. no breathing issues. 2 weeks ago had with severe sore throat. no frequent tonsil infections. no mono in past. idiopathic htn. MD [address], [place], [address], [facility] [employer] [facility] 04/08/2018 14:12:28 10/22/2019 text/html Moving to study abroad from Nov to May in [facility]. WIll have 1 month to travel throughout [place] when she feels she would like to go to [place] and [place]. Overall well. Needs acne refills for study abroad. Would like to get them here rather than followup with [facility]. MD [address], [place], [address], [facility] [employer] [facility] 10/22/2019 09:17:54 01/16/2020 text/html Met with Mark ruano sore throat - started 2 days ago - swollen cervical lymphnodes - intermittent slight headache - no fever, no NVD - no body aches - has been staying at home for the past 3 weeks - no one else in the house is feeling unwell CASI Ponce [address], [place], [address], [facility] [employer] [facility] 01/16/2020 09:47:28 02/25/2021 text/html Ms. Corea is here for a virtual visit. She is a very active young woman and at college over the past few months she has been dancing very vigorously. She is noticed increasing amount of pain in her neck and recently she had an event where she felt a crushing sensation in the back of her neck while dancing and carrying a large piece of wood on the top of her head. Since then she is been complaining of neck pain that radiates to her arms. She has been to the emergency room as well as to a local physician's judicial assistant and they have diagnosed her with cervical radiculopathy. She has started physical therapy and has had no significant improvement in her symptoms. She made an appointment to see me virtually from her residence in [place]. She denies any bladder or bowel control issues but she does admit to significant arm pain that she describes as a burning sensation that wraps around her chest at times also extends into her arms. She denies any weakness but she has difficulty sleeping at night. She has been using ibuprofen without significant improvement. She has been given cervical traction and a home traction device. None of this has alleviated the pain and she thinks has exacerbated it. Teri Velasquez MD [address], [place], [address], [facility] 02/28/2021 09:37:27 OBGyn Episode No OBEpisode recorded.
--- OUTSIDE RECORDS SUMMARY | 2025-02-26 15:50 | XMS_ITS | Data Portability ---
Author Organization MD [employer] Address [address] [facility] [place] [address] Assessment No assessment recorded. Plan of Treatment Reminders Order Date Submit Date Provider Last Modified By Organization Details Last Modified Time Details Appointments None recorded . Lab CBC [employer] [facility], [address] [place] [address], [id number], 7 15:12:20 TSH, serum or plasma [employer] [facility], [address] [place] [address], [id number], 7 15:12:20 prolacti n, serum [employer] [facility], [address] [place] [address], [id number], 7 15:12:20 beta-HCG , qualitat gordy, serum or plasma [employer] [facility], [address] [place] [address], [id number], 7 15:12:20 Referral None recorded . Procedures None recorded . Surgeries None recorded . Imaging None recorded . Medication Orders .5 (28) 1.5 mg-30 mcg (21)/75 mg (7) tablet 017 INTERFACE [id number], [address] [facility], [place], [address], 7 21:36:08 Patient TargetsNo targets recorded. Patient Instructions Encounter Date Encounter Id Patient Instructions Last Modified By Organization Details Last Modified Time 10/12/2016 [id number] abnormal uterine bleeding: care [email or web address] Not available 10/12/2016 16:02:20 - sonogram to evaluate placement of IUD recommended. - if IUD improperly placed, recommend IUD exchange. - patient currently being treated for hypertension of unknown etiology; use of hormones in this setting reviewed. Current BP is normal. Could consider estrogen patch to control irregular BP. - options for CM reviewed in setting of elevated BP [email or web address] Not available 10/12/2016 16:06:50 Reason for Referral None Reported. Results Created Date Observation Date Name Description Value Unit Range Abnormal Flag Note LastModifiedBy Organization Detail LastModifiedTime 10/17/19 17 10/17/2016 US, pelvi s No observ ation record ed. [email or web address] Not Available 11/01 14:05:33 01/16/20 19 imagi ng/di agnos tic resul t No observ ation record ed. [email or web address] Not Available 12/2018 11:10:01 Result Notes None recorded. Problems Name Problem SNOMED Code Status Onset Date Resolution Date Notes Provider Name and Address Organization Details Recorded Time Hypertensi ve disorder 55715892 Active etiology unknown Dimple Arredondo MD [address] [place] [address],[address], , MD [employer] 6 15:57:35 Urinary tract infectious disease 57759356 Active as MD Lisa [facility] [employer] 6 11:33:47 Irregular periods 63040795 Active Dimple Arredondo MD [address] [place] [address],[address] [facility], [place], [place], , MD [employer] 7 21:29:32 Problem Notes None recorded. Procedures Surgical History Date Name Laterality Status Provider Name and Address Organization Details Recorded Time Catheterize for urine spec completed [employer] 10/12/2016 12:43:49 Imaging Results Imaging Date Name Status LastModified by Organiz ation Details LastModified Time 10/17/2016 US, pelvis completed [email or web address] Information no t available 11/01/2016 14:05:33 01/15/2019 imaging/diag nostic result completed [email or web address] Information not available 01/15/2019 11:10:01 Procedure Notes None recorded. Medical Equipment None Reported. Allergies No known drug allergies Medications Name Sig Start Date Stop Date Status Note LastModified by Organization Details LastModified Time hydrocodone 5 mg-acetaminop hen 325 mg tablet 09/04 completed Not Available Not Available Not Available oxycodone-brett taminophen 5 mg-325 mg tablet 09/04 completed Not Available Not Available Not Available amlodipine 10 mg tablet Take 1 tablet every day by oral route. active Not Available Not Available No t Available cefdinir 300 mg capsule 09/04 completed Not Available Not Available Not Available 11/03 (28) 1 mg-20 mcg (21)/75 mg (7) tablet 1 po qD active Not Available Not Availabl e Not Available .03/13 (28) 1.5 mg-30 mcg (21)/75 mg (7) tablet Take 1 tablet every day by oral route. 2016 active Not Available Not Available Not Avai lable Lo Loestrin Fe 1 mg-10 mcg (24)/10 mcg (2) tablet Take 1 tablet every day by oral route. 09/04 completed Not Available Not Available Not Available Yanique active Jul 2015 Not Available Not Available Not Available Vitals Date Recorded Body weight Provider Name an d Address Organization Details Last Updated DateTime 10/12/2016 18537.94 g Nae [employer], [place] 1 12/13/2015 11:41:09 Date Recorded Body weight Body mass index (BMI) Body height Systolic blood pressure Diastolic blood pressure Provider Name and Address Organization Details Last Updated DateTime 09/04/2017 15244.22 g 23.4 kg/m2 172.72 cm 134 mm[Hg] 84 mm[Hg] [employer] [place] 7 13:59:47 Social History Question Answer Notes LastModified by Organizat ion Details LastModified Time Tobacco Smoking Status Never Smoker Dimple Arredondo MD [address] [facility],[address], [place], [address], MD [employer], [facility] 10/16/2016 21:37:26 Marital Status Single Informatio n not available 10/12/2016 Sex: Unknown Functional Status Question Answer Note LastModified by Organization D etails LastModified Time What is your occupation? Student Information not available 10/12/2016 Mental Status None recorded. Family History Relationship Description Onset Age of this Age Resolved Age Notes LastModified by Organization Details LastModified Time Father Blood coagulation disorder [email or web address] Not available 2015 11:46:58 Medical History Condition Response Other N Blood Transfusion N Breast Cancer N Depression N Lung Disease N Defects or Inherited Disease N Breast Problem N Anesthesia Complications N Anxiety Disorder N Arthritis N Infertility N Polyps N Acid Reflux (GERD) N Abnormal Pap Smear N Cancer N Varicosities N Stroke N Endometriosis N High Cholesterol N Fibromyalgia N Headaches N Kidney Disease N Heart Problems N HPV N Thyroid Problems N Kidney or Bladder Problems N GI Problems N Acne N Eating Disorder N Anemia N Psychiatric Illness N Ovarian Cancer N Diabetes N Sexually Transmitted Infections N Fibroids N Eczema N Abuse/Domestic Violence N Asthma N Hepatitis N Heart Disease N Pre-Eclampsia N Hypertension Y Osteoporosis N Thrombophilias N Gynecological History Statement/Question Response HPV Vaccine Y Current Control Method IUD Date of LMP 08/06/2017 Sexually Active? Y Obstetrics History GPAL:G 0 P 0 0 0 0 Past Encounters Encounter ID Performer Location Encounter Start Date Encounter Closed Date Diagnosis/Indication Diagnosis SNOMED-CT Code Diagnosis ICD10 Code Diagnosis Note [id number] Dimple Arredondo MD Main [facility] [address] [facility] [address] [place] [address] 10/12/2016 11:29:45 10/12/2016 16:07:52 Irregular periods 49921608 N92.6 Disorder o f menstruation 275946629 N92.6 [id number] Dimple Arredondo MD Main Office [address] [facility] [address] [employer] [place] 6 09/04/2017 13:38:19 09/04/2017 21:38:18 Irregular periods 57117146 N92.6 Health Concerns Section Related Observation LastModified by Organization Detai ls LastModified Time None Recorded Concern Status LastModified by Organization Details LastModified Time None Recorded Advance Directives Directive None Recorded Payers Encounter Date Sequence Insurance Name Policy Number Policy Suarez Covered Member ID Suarez Member ID Guarantor Name 10/12/2016 1 [employer] - CHOICE (POS II) [id number] Odin Nicole [id number] Nahomy 09/04/2017 1 [employer] - CHOICE (POS II) [id number] Odin Nicole [id number] Nahomy Notes Date Note Type Note Provider Name and Address Organization Details Recorded Time 10/12/2016 text/html The patient presents for evaluation of abnormal vaginal bleeding. She received a Yanique IUD in 07/30 & since then has noted irregular cycles. She notes that she is currently getting menstrual bleeding every 14 days. . She {{does not* does}} have a history of irregular bleeding. She {{is is not*}} known to have fibroids. She {{denies* admits to}} possibility of . She {{denies* note}} recent changes in weight, exercise, diet, stress, sleep or travel. The patient notes cramping but not of significant intensity. She denies pain with urination or intercourse. She has had new sexual partners. Dimple Arredondo MD [address] [place] [address],[place] [address], [place], [place], , MD [employer] [employer] 10/12/2016 16:07:24 09/04/2017 text/html 16 yo with h/o irregular cycles following insertion of yanique presents for discussion of continued irregular bleeding. the patient has had a normal ultrasound & normal hormonal investigation. She was then started on loestrin 11/03 & was noting that her cycle was improved (in terms of amount of flow, though it was still rather long) over the past several months until this month when her cycle lasted 3 weeks & was heavy again. She reports no medical changes. She reports taking her OCP on a regular basis. Dimple Arredondo MD [address] [place] [address],[address], [place], [place], , MD [employer] 09/04/2017 21:37:01 OBGyn Episode No OBEpisode recorded.
== END 2025-02-26 15:16 | disposition home or self-care (01) ==
LOC: HO.UMASIMG 15:15
PROVIDERS: Visit Provider Family Medicine
DX: Z30.431 Encounter for routine checking of intrauterine contraceptive device (principal)
CPT/HCPCS: 76830; 76856

== ENCOUNTER 2025-05-27 08:49 | Outpatient (REF) | payer OTHER, SELFPAY ==
--- OUTSIDE RECORDS SUMMARY | 2025-05-27 09:07 | XMS_ITS | Referral Summary ---
Author Organization [facility] Address [address] [place] [address] Care Team Providers Care Mattress And Foundation Sewer Name Role Phone Vandana Schwartz [facility] Primary Care Provider [phone] Medications amLODIPine (NORVASC) 5 mg tablet Take [...] Orientation Not on file Plan of Treatment Not on file Insurance [employer] PPO/EPO/IND Care Teams Mattress And Foundation Sewer Relationship Specialty Start Date End Date Vandana Schwartz FNP [address] [place] [address] PCP - General 11/18/24
--- OUTSIDE RECORDS SUMMARY | 2025-05-27 09:07 | XMS_ITS | Encounter Summary ---
Author Organization [facility] Address [address] [facility] [address] [place] [address] Phone Care Team Providers Care Media Executive Name Role Phone Pcp, Unknown Primary Care Provider Unavailabl e Encounter Details Date Type Department Care Team ([facility] st Contact Info) Description 02/06/2024 Transcribe Orders Virtual Department [address] [place] [address] Vandana Schwartz, KEKE [address] [place] [phone] [email or web address] Scoliosis, unspecified scoliosis type, unspecified spinal region (Primary Dx) Social History Tobacco Use Types Packs/Day Years Used Date Smoking Tobacco: Some Days Smokeless Tobacco: Never Alcohol Use Standard Drinks/Week Comments Yes 0 (1 standard drink = 0.6 oz pur e alcohol) occasionally Education Answer Date Recorded Are you interested in more education? Not on sobia e 02/09/2023 Are you concerned about learning? Not on file 02/09/2023 No 02/09/2023 No 02/09/2023 Digital Access Answer Date Recorded No 03/10/2023 No 03/10/2023 No 03/10/2023 Reliable internet access at home? Not on file 03/10/2023 Device with a working camera? Not on file Comments No Sex and Gender Information Value Date Recorded Sex Assigned at Female 01/22/2021 8:58 PM EDT Legal Sex Female 8:33 PM EDT Gender Identity Non-binary 01/22/2021 8:58 PM EDT Sexual Orientation Queer 09/24/2021 2: 51 AM EST documented as of this encounter Plan of Treatment Not on file documented as of this encounter Visit Diagnoses Diagnosis Scoliosis, unspecified scoliosis type, unspecified spinal region- Primary documented in this encounter Care Teams Media Executive Relationship Specialty Start Date End Date Pcp, Unknown PCP - General 09/24/21 documented as of this encounter Additional Source Comments The information contained in this document represents components of the legal health record. It is not the complete legal health record.[facility]
--- OUTSIDE RECORDS SUMMARY | 2025-05-27 09:08 | XMS_ITS | Patient Health Record ---
Author Organization [facility] Address [address] [facility] [address] [place] [address] Care Team Providers Care Group Contract Analyst Name Role Phone aaaNone, None Primary Care Provider Unavailabl e Reason For Referral No Information Plan Of Treatment No Information Insurance Providers Payer Name Payer Address Payer Phone Subscriber Number Group Number Insured Name Patient Relationship to Insured Coverage Start Date Coverage End Date MD Garcia [address] [place] [address] [id number] Shyanne Corea Self - patient is the insured 2020
--- OUTSIDE RECORDS SUMMARY | 2025-05-27 09:08 | XMS_ITS | Patient Health Record ---
Author Organization [facility] [place] [facility] Address [address] [place] [address] Support Name Relationship Address Phone MARIE TERAN Guarantor Unknown Allergies No Known Allergies Reason For Referral No Information Medications Medication SIG (Take, Route, Frequency, Duration) Notes Start Date End Date Status Cefdinir 300 MG Oral; Duration: 0 ; SourceRx: Cefdinir 300 MG Oral Capsule; SourceStatus:Active *Pick strength-form from [employer] for eRX* 05/03/2017 Active 11/03 1-20 MG-MCG Oral; Duration: 0 ; SourceRx: 11/03 1-20 MG-MCG Oral Tablet; SourceStatus:Active *Pick strength-form from [employer] for eRX* 05/03/2017 Active amLODIPine Besylate 10 MG Oral; Duration: 0 ; SourceRx: AMLODIPINE BESYLATE, 10MG (Oral Tablet); SourceStatus:Active *Pick strength-form from [employer] for eRX* 05/03/2017 Active Problems Problem Type SNOMED Code ICD Code Onset Dates Problem Status W/U Status Risk Notes Problem Chronic rhinitis (87083556) Chronic rhinitis (J31.0) Active confirmed Problem Hypertrophy of tonsils (70259759) Hypertrophy of tonsils (J35.1) Active confirmed Problem Apnea (0248074) Apnea, not elsewhere classified (R06.81) Active confirmed Problem Title:Apne a Problem Puncture wound without foreign body of left ear, sequela (S01.332S) Active confirmed Plan Of Treatment No Information Insurance Providers Payer Name Payer Address Payer Phone Subscriber Number Group Number Insured Name Patient Relationship to Insured Coverage Start Date Coverage End Date [employer] [address] [place], [place] [phone] [id number] MARIE TERAN 5 Medical (General) History Surgical History Surgery Date(Month/Year) Problem Title : None, Problem Status : A ctive,
== END 2025-05-27 08:50 | disposition home or self-care (01) ==
LOC: HO.UMASIMG 08:49
PROVIDERS: Visit Provider Family Medicine
DX: Z13.89 Encounter for screening for other disorder (principal)